=== PATIENT | male | born 1985 | race Caucasian/White ===

== ENCOUNTER 2017-07-07 10:46 | Emergency (ER) | payer OTHER ==
[~2017-07-07] VITALS: Ht 172.7 cm; Wt 90.0 kg
[2017-07-07 10:49] VITALS: BP 172/102; PULSE 128; RESP 18; TEMP 99.8; O2SAT 97
--- NOTE | 2017-07-07 11:10 | PD ---
HPI Chief Complaint: Fever Time Seen by Provider: 10:53 Travel History International Travel<30 days: No Contact w/Intl Traveler<30days: No Traveled to known affect area: No History of Present Illness HPI The patient is a 31-year-old male who presents emergency department for evaluation of fever. The patient underwent colonoscopy on July 02, 2017 at [facility]. The patient had a polyp removed at that time and was advised not to have any ibuprofen for several weeks. The patient then developed a fever to 101.8, was advised to come to the emergency department for evaluation. He does complain of a mild sore throat, left-sided neck pain, dry cough, and fever. He denies any nausea, vomiting, diarrhea, or abdominal pain he denies any dysuria. Symptoms are moderate. He has been eating without difficulty. He last took Tylenol at 7 AM. He is currently in [place], [facility] at [facility]. [facility] Past Medical History Narrative Medical Hypertension, environmental allergies Past Surgical History Narrative Surgical [place] tooth surgery, colonoscopy Social History Alcohol Use: No Tobacco Use: No Substance Use: No Allergies-Medications (Allergen,Severity, Reaction): Coded Allergies: No Known Allergies (Unverified , 07/07/17) Review of Systems Except as stated in HPI: all other systems reviewed are Neg General / Constitutional: Positive: Fever HENT: Positive: Sore Throat, Neck Pain, No: Headaches Cardiovascular: No: Chest Pain or Discomfort Respiratory: Positive: Cough, No: Shortness of Breath Gastrointestinal: No: Nausea, Vomiting, Diarrhea, Abdominal Pain Genitourinary: No: Dysuria Musculoskeletal: Positive: Myalgias Skin: No Rash Physical Exam Narrative GENERAL: Awake, alert, pleasant 31-year-old male who appears his stated age and is in no acute respiratory distress. SKIN: Focused skin assessment warm/dry. HEAD: Atraumatic. Normocephalic. EYES: Pupils equal and round. No scleral icterus. No injection or drainage. ENT: No nasal bleeding or discharge. Erythema but no exudate. NECK: Trachea midline. No JVD. Left cervical lymphadenopathy, no meningeal signs. CARDIOVASCULAR: Regular, tachycardic with a heart rate of 120. RESPIRATORY: No accessory muscle use. Clear to auscultation. Breath sounds equal bilaterally. GASTROINTESTINAL: Abdomen soft, non-tender, nondistended. Small reducible umbilical hernia. No guarding or rigidity. MUSCULOSKELETAL: No obvious deformities. No clubbing. No cyanosis. No edema. NEUROLOGICAL: Awake and alert. No obvious cranial nerve deficits. Motor grossly within normal limits. Normal speech. PSYCHIATRIC: Appropriate mood and affect; insight and judgment normal. Data Data Last Documented VS Vital Signs Date Time Temp Pulse Resp B/P (MAP) Pulse Ox O2 Delivery O2 Flow Rate FiO2 07/07/17 11:03 96 Room Air 07/07/17 10:49 99.8 128 18 172/102 (125) Orders Orders Complete Blood Count With Diff (07/07/17 11:02) Comprehensive Metabolic Panel (07/07/17 11:02) Urinalysis - C+S If Indicated (07/07/17 11:02) Group A Rapid Strep Screen (07/07/17 11:02) Chest, Single Ap (07/07/17 ) Influenzae A/B Antigen (07/07/17 11:02) Ct Abd/Pel W/O Iv Contrast (07/07/17 ) Acetaminophen (Tylenol) (07/07/17 11:15) Sodium Chlor 0.9% 1000 Ml Inj (Ns 1000 M (07/07/17 11:15) Lactic Acid (07/07/17 11:12) Strep Culture (Group A) (07/07/17 11:00) Labs Laboratory Tests Test 07/07/17 11:05 07/07/17 11:06 07/07/17 11:15 Lactic Acid Level 0.8 mmol/L White Blood Count 5.9 TH/MM3 Red Blood Count 4.52 MIL/MM3 Hemoglobin 13.5 GM/DL Hematocrit 38.8 % Mean Corpuscular Volume 85.8 FL Mean Corpuscular Hemoglobin 30.0 PG Mean Corpuscular Hemoglobin Concent 34.9 % Red Cell Distribution Width 14.4 % Platelet Count 197 TH/MM3 Mean Platelet Volume 7.6 FL Neutrophils (%) (Auto) 76.4 % Lymphocytes (%) (Auto) 9.2 % Monocytes (%) (Auto) 13.3 % Eosinophils (%) (Auto) 0.7 % Basophils (%) (Auto) 0.4 % Neutrophils # (Auto) 4.5 TH/MM3 Lymphocytes # (Auto) 0.5 TH/MM3 Monocytes # (Auto) 0.8 TH/MM3 Eosinophils # (Auto) 0.0 TH/MM3 Basophils # (Auto) 0.0 TH/MM3 CBC Comment DIFF FINAL Differential Comment Blood Urea Nitrogen 16 MG/DL Creatinine 1.14 MG/DL Random Glucose 98 MG/DL Total Protein 7.8 GM/DL Albumin 4.0 GM/DL Calcium Level 8.8 MG/DL Alkaline Phosphatase 100 U/L Aspartate Amino Transf (AST/SGOT) 26 U/L Alanine Aminotransferase (ALT/SGPT) 37 U/L Total Bilirubin 0.6 MG/DL Sodium Level 138 MEQ/L Potassium Level 3.7 MEQ/L Chloride Level 103 MEQ/L Carbon Dioxide Level 26.9 MEQ/L Anion Gap 8 MEQ/L Estimat Glomerular Filtration Rate 74 ML/MIN Urine Color YELLOW Urine Turbidity CLEAR Urine pH 6.0 Urine Specific [place] 1.042 Urine Protein 30 mg/dL Urine Glucose (UA) NEG mg/dL Urine Ketones NEG mg/dL Urine Occult Blood NEG Urine Nitrite NEG Urine Bilirubin NEG Urine Urobilinogen LESS THAN 2.0 MG/DL Urine Leukocyte Esterase NEG Urine RBC LESS THAN 1 /hpf Urine WBC 1 /hpf Urine Squamous Epithelial Cells 1 /hpf Urine Transitional Epithelial Cells <1 /hpf Urine Mucus FEW /lpf Microscopic Urinalysis Comment CULT NOT INDICATED MDM Medical Decision Making Medical Screen Exam Complete: Yes Emergency Medical Condition: Yes Medical Record Reviewed: Yes Interpretation(s) Last Impressions Chest X-Ray 07/07/17 0000 Signed Impressions: Service Date/Time: Friday, July 07, 2017 11:08 - CONCLUSION: Normal examination. Char Lewis MD CT of the abdomen and pelvis is negative. Date/Time Source Procedure Growth Status 07/07/17 11:05 Nasal Aspirate Influenza Types A,B Antigen (MARILYN) - Final NEGATIVE FOR FLU A AND B ANTIGEN.... Complete 07/07/17 11:00 Throat Group A Streptococcus Screen Pending Received 07/07/17 11:00 Throat Group A Streptococcus Screen (MARILYN) - Final Complete Laboratory Tests Test 07/07/17 11:05 07/07/17 11:06 07/07/17 11:15 Lactic Acid Level 0.8 mmol/L White Blood Count 5.9 TH/MM3 Red Blood Count 4.52 MIL/MM3 Hemoglobin 13.5 GM/DL Hematocrit 38.8 % Mean Corpuscular Volume 85.8 FL Mean Corpuscular Hemoglobin 30.0 PG Mean Corpuscular Hemoglobin Concent 34.9 % Red Cell Distribution Width 14.4 % Platelet Count 197 TH/MM3 Mean Platelet Volume 7.6 FL Neutrophils (%) (Auto) 76.4 % Lymphocytes (%) (Auto) 9.2 % Monocytes (%) (Auto) 13.3 % Eosinophils (%) (Auto) 0.7 % Basophils (%) (Auto) 0.4 % Neutrophils # (Auto) 4.5 TH/MM3 Lymphocytes # (Auto) 0.5 TH/MM3 Monocytes # (Auto) 0.8 TH/MM3 Eosinophils # (Auto) 0.0 TH/MM3 Basophils # (Auto) 0.0 TH/MM3 CBC Comment DIFF FINAL Differential Comment Blood Urea Nitrogen 16 MG/DL Creatinine 1.14 MG/DL Random Glucose 98 MG/DL Total Protein 7.8 GM/DL Albumin 4.0 GM/DL Calcium Level 8.8 MG/DL Alkaline Phosphatase 100 U/L Aspartate Amino Transf (AST/SGOT) 26 U/L Alanine Aminotransferase (ALT/SGPT) 37 U/L Total Bilirubin 0.6 MG/DL Sodium Level 138 MEQ/L Potassium Level 3.7 MEQ/L Chloride Level 103 MEQ/L Carbon Dioxide Level 26.9 MEQ/L Anion Gap 8 MEQ/L Estimat Glomerular Filtration Rate 74 ML/MIN Urine Color YELLOW Urine Turbidity CLEAR Urine pH 6.0 Urine Specific [place] 1.042 Urine Protein 30 mg/dL Urine Glucose (UA) NEG mg/dL Urine Ketones NEG mg/dL Urine Occult Blood NEG Urine Nitrite NEG Urine Bilirubin NEG Urine Urobilinogen LESS THAN 2.0 MG/DL Urine Leukocyte Esterase NEG Urine RBC LESS THAN 1 /hpf Urine WBC 1 /hpf Urine Squamous Epithelial Cells 1 /hpf Urine Transitional Epithelial Cells <1 /hpf Urine Mucus FEW /lpf Microscopic Urinalysis Comment CULT NOT INDICATED Differential Diagnosis Differential diagnosis includes influenza, strep pharyngitis, viral pharyngitis , viral syndrome, pneumonia, bronchitis, perforated viscus, diverticulitis. Narrative Course IV was established, labs are drawn and sent, and the patient was placed on cardiac telemetry monitoring and continuous pulse oximetry monitoring. Strep screen was sent to lab. Influenza screen was sent to lab. Chest x-rays obtained. UA was sent to lab. CT the abdomen and pelvis was performed to rule out perforated viscus with abscess after colonoscopy with fever 101.8. Chest x- rays unremarkable. CT is negative, no evidence of perforation or abscess. Influenza screen is negative. Strep screen is negative. White count lactic acid are unremarkable. Patient is febrile illness, most likely viral. Patient is stable for outpatient follow-up. He will be provided a copy of his CT results, x-ray results, and lab results at discharge. Diagnosis Primary Impression: Febrile illness Patient Instructions: General Instructions Additional Instructions: Tylenol as needed for pain. Plenty fluids to stay hydrated. Please provide the patient a copy of his CT results, lab results, and chest x-ray results at discharge. Follow-up with your primary physician. Return if symptoms worsen or progress. Disposition: 01 DISCHARGE HOME Condition: Stable Daniel Kay MD Jul 07, 2017 11:09
[2017-07-07] MEDS ORDERED: SODIUM CHLOR 0.9% 1000 ML INJ 1,000 ML IV ONE (11:15)
[2017-07-07] MEDS ORDERED: ACETAMINOPHEN 325 MG TAB PO ONE (11:15)
--- NOTE | 2017-07-07 11:27 | RADRPT ---
EXAM DATE/TIME: 07/07/2017 11:08 [facility] COMPARISON: No previous studies available for comparison. INDICATIONS : Fever that started today. MEDICAL HISTORY : None. SURGICAL HISTORY : None. ENCOUNTER: Initial ACUITY: 1 day PAIN SCORE: 0/10 LOCATION: Bilateral chest FINDINGS: A single view of the chest demonstrates the lungs to be symmetrically aerated without evidence of mas s, infiltrate or effusion. The cardiomediastinal contours are unremarkable. Osseous structures are intact. CONCLUSION: Normal examination. Char Lewis MD on July 07, 2017 at 11:25 Board Certified Radiologist. This report was verified electronically.
[2017-07-07 11:44] LABS: AUTOMATED NEUTROPHIL # 4.5 TH/MM3 (1.8-7.7); BASOPHIL % 0.4 % (0.0-2.0); EOSINOPHIL % 0.7 % (0.0-4.0); HEMATOCRIT 38.8 % (39.0-51.0); HEMOGLOBIN 13.5 GM/DL (13.0-17.0); LYMPH % 9.2 % (9.0-44.0); LYMPHOCYTE # 0.5 TH/MM3 (1.0-4.8); MEAN CELL VOLUME 85.8 FL (80.0-100.0); MEAN CORPUSCULAR HGB CONC 34.9 % (32.0-36.0); MEAN PLATELET VOLUME 7.6 FL (7.0-11.0); MONO % 13.3 % (0.0-8.0); MONOCYTE # 0.8 TH/MM3 (0-0.9); NEUT % 76.4 % (16.0-70.0); PLATELET COUNT 197 TH/MM3 (150-450); RED BLOOD COUNT 4.52 MIL/MM3 (4.50-5.90); RED CELL DISTRIBUTION WIDTH 14.4 % (11.6-17.2); WHITE BLOOD COUNT 5.9 TH/MM3 (4.0-11.0)
--- NOTE | 2017-07-07 11:44 | RADRPT ---
EXAM DATE/TIME: 07/07/2017 11:28 [facility] COMPARISON: No previous studies available for comparison. INDICATIONS : Fever status post colonoscopy (polyp removed) 5 days ago. ORAL CONTRAST: No oral contrast ingested. RADIATION DOSE: 10.03 CTDIvol (mGy) MEDICAL HISTORY : None SURGICAL HISTORY : None. ENCOUNTER: Initial ACUITY: 4 - 6 days PAIN SCALE: 0/10 LOCATION: anterior TECHNIQUE: Volumetric scanning of the abdomen and pelvis was performed. Using automated exposure control and ad justment of the mA and/or kV according to patient size, radiation dose was kept as low as reasonably achievable to obtain optimal diagnostic quality images. DICOM format image data is available electro nically for review and comparison. FINDINGS: LOWER LUNGS: The visualized lower lungs are clear. LIVER: Homogeneous density without lesion. There is no dilation of the biliary tree. No calcified gallston es. SPLEEN: Normal size without lesion. PANCREAS: Within normal limits. KIDNEYS: Normal in size and shape. There is no mass, stone, or hydronephrosis. ADRENAL GLANDS: Within normal limits. VASCULAR: There is no aortic aneurysm. BOWEL/MESENTERY: The stomach, small bowel, and colon demonstrate no acute abnormality. There is no free intraperitone al air or fluid. ABDOMINAL WALL: Within normal limits. RETROPERITONEUM: There is no lymphadenopathy. BLADDER: No wall thickening or mass. REPRODUCTIVE: Within normal limits. INGUINAL: There is no lymphadenopathy or hernia. MUSCULOSKELETAL: Within normal limits for patient age. CONCLUSION: Normal exam. No abnormal bowel wall thickening, free fluid or free air. No source of fever is seen. Char Lewis MD on July 07, 2017 at 11:40 Board Certified Radiologist. This report was verified electronically.
[2017-07-07 11:57] LABS: BILIRUBIN, URINE NEG (NEG); BLOOD, URINE NEG (NEG); GLUCOSE,URINE NEG (NEG); KETONE, URINE NEG (NEG); MUCUS URINE FEW /lpf (OCC); NITRITE,URINE NEG (NEG); SQUAMOUS EPITHELIAL CELL URINE 1 /hpf (0-5); TRANSITIONAL EPI CELLS, URINE <1 /hpf; URINE COLOR YELLOW (YELLW/STRAW); URINE LEUKOCYTE ESTERASE NEG (NEG)
[2017-07-07 12:06] LABS: ALT (GPT) 37 U/L (12-78); AST (GOT) 26 U/L (15-37); BICARBONATE 26.9 MEQ/L (21.0-32.0); BLOOD UREA NITROGEN 16 MG/DL (7-18); CALCIUM 8.8 MG/DL (8.5-10.1); CHLORIDE 103 MEQ/L (98-107); CREATININE 1.14 MG/DL (0.60-1.30); GLOMERULAR FILTRATION RATE 74 ML/MIN (>89); GLUCOSE,RANDOM 98 MG/DL (74-106); SODIUM (NA) 138 MEQ/L (136-145)
[2017-07-07 12:08] LABS: ALKALINE PHOSPHATASE 100 U/L (45-117); TOTAL BILIRUBIN ADULT 0.6 MG/DL (0.2-1.0); TOTAL PROTEIN 7.8 GM/DL (6.4-8.2)
== END 2017-07-07 12:36 | disposition home or self-care (01) ==
LOC: NEPE 10:46
DX: R50.9 Fever, unspecified (principal); R00.0 Tachycardia, unspecified; R05 Cough; J02.9 Acute pharyngitis, unspecified; M54.2 Cervicalgia; I10 Essential (primary) hypertension
CPT/HCPCS: 71045; 74176; 80053; 81001; 83605; 85025; 87081; 87804; 87880; 99285; J7030